=== PATIENT | female | born 1955 | race Two or more races ===

== ENCOUNTER 2020-12-31 23:07 | Emergency (ER) | payer MEDICAID ==
[~2020-12-31] VITALS: Ht 160 cm; Wt 100.0 kg
[~2020-12-31 23:07] MED LIST: NOCURR
[2020-12-31] MEDS ORDERED: MethylPREDNISolone SOD SUCC 125 MG/2 ML VIAL IVP ONE (23:30)
[2020-12-31] MEDS ORDERED: DiphenhydrAMINE HCL 50 MG/ML VIAL IVP ONE (23:30)
[2021-01-01 02:10] VITALS: BP 158/95
== END 2021-01-01 02:19 | disposition home or self-care (01) ==
LOC: EMS 23:09
DX: T78.40XA Allergy, unspecified, initial encounter (principal); I10 Essential (primary) hypertension; E78.00 Pure hypercholesterolemia, unspecified; X58.XXXA Exposure to other specified factors, initial encounter
CPT/HCPCS: 82962; 96374; 96375; 99284; J1200; J2930; 99283